=== PATIENT | female | born 1985 | race African-American/Black ===

== ENCOUNTER 2025-05-18 16:02 | Emergency (ER) | payer MEDICAID, OTHER ==
[~2025-05-18] VITALS: Ht 167.6 cm; Wt 85.0 kg
[2025-05-18 16:16] VITALS: O2SAT 95
[2025-05-18] MEDS ORDERED: BO1 TP (18:10)
[2025-05-18] MEDS ORDERED: CLIN-194 MT (18:10)
[2025-05-18] MEDS ORDERED: IBUP-1455 MT (18:10)
[2025-05-18 18:48] VITALS: BP 118/63; PULSE 74; RESP 16; TEMP 36.7; O2SAT 97
[2025-05-18] MEDS: KETOROLAC 30MG/ML VIAL IM ONE (18:48)
== END 2025-05-18 18:52 | disposition home or self-care (01) ==
LOC: ER 16:17
DX: L02.412 Cutaneous abscess of left axilla (principal); L02.214 Cutaneous abscess of groin; F12.90 Cannabis use, unspecified, uncomplicated; Z79.899 Other long term (current) drug therapy
CPT/HCPCS: 99283; 81025; 96372; J1885